=== PATIENT | male | born 1980 | race African-American/Black ===

== ENCOUNTER 2019-10-15 09:05 | Emergency (ER) | payer MEDICAID ==
[~2019-10-15] VITALS: Ht 185.4 cm; Wt 108.7 kg
[2019-10-15] MEDS ORDERED: MAALOX/HYOSCYAMINE/LIDOCAINE 45 ML BTL ONE (09:58)
[2019-10-15] MEDS ORDERED: MAALOX/HYOSCYAMINE/LIDOCAINE 45 ML BTL PO ONE (10:00)
[2019-10-15 10:06] LABS: MEAN CORPUSCULAR HGB CONC 33.6 g/dL (33.2-36.2); MEAN PLATELET VOLUME 7.8 fL (7.4-10.4); PLATELET COUNT 271 x10^3/uL (130-400); RED BLOOD COUNT 5.18 x10^6/uL (4.38-5.82); RED CELL DISTRIBUTION WIDTH 14.1 % (9.4-14.8)
[2019-10-15 10:11] LABS: INTERNATIONAL NORMALIZED RATIO 0.93 (0.93-1.1); PROTHROMBIN TIME 9.9 Seconds (9.6-11.5)
[2019-10-15 10:15] LABS: ALANINE AMINOTRANSFERASE 31 U/L (12-78); ALBUMIN 3.7 g/dL (3.4-5.0); ANION GAP 5 mmol/L (5-15); CALCIUM 9.1 mg/dL (8.5-10.1); CHLORIDE 112 mmol/L (98-107); CREATININE 1.32 mg/dL (0.7-1.3)
[2019-10-15 10:17] LABS: ALKALINE PHOSPHATASE 50 U/L (45-117); BILIRUBIN,TOTAL 0.4 mg/dL (0.2-1.0); TOTAL PROTEIN 7.6 g/dL (6.4-8.2)
--- NOTE | 2019-10-15 10:19 | NUR ---
pt has co abodminal pain w n/v/d for 1 week. denies cp, sob, cough.
[2019-10-15 10:34] LABS: BASOPHILS # (AUTO) 0.01 x10^3/uL (0-0.1); BASOPHILS % (AUTO) 0 % (0-1); EOSINOPHILS # (AUTO) 0.02 x10^3/uL (0-0.4); EOSINOPHILS % (AUTO) 1 % (1-7); LYMPHOCYTES # (AUTO) 0.71 x10^3/uL (1-3.4); LYMPHOCYTES % (AUTO) 21 % (22-44); MD SCAN; MONOCYTES # (AUTO) 0.21 x10^3/uL (0.2-0.8); MONOCYTES % (AUTO) 6 % (2-9); NEUTROPHILS # (AUTO) 2.48 x10^3/uL (1.8-6.8); NEUTROPHILS % (AUTO) 72 % (42-75)
[2019-10-15] MEDS ORDERED: MORPHINE SULFATE 4 MG/ML, 1ML ONE (10:41)
[2019-10-15] MEDS ORDERED: ONDANSETRON 2MG/ML, 2ML ONE (10:41)
[2019-10-15] MEDS ORDERED: ONDANSETRON 2MG/ML, 2ML IVPush ONE (11:00)
[2019-10-15] MEDS ORDERED: MORPHINE SULFATE 4 MG/ML, 1ML IVPush PRN (11:00)
[2019-10-15] MEDS ORDERED: SODIUM CHLORIDE FLUSH 10ML SYR IVF ONE (11:00)
--- NOTE | 2019-10-15 11:17 | NUR ---
pt medicated for pian. co 11/02 in abdomen. vss
[2019-10-15 11:24] LABS: MICROSCOPIC AUTO
[2019-10-15] MEDS ORDERED: OMNIPAQUE 350 MG/ML, 100ML BOTTLE ONE (12:18)
--- NOTE | 2019-10-15 12:30 | NUR ---
PT RESTING. BACK FROM IMAGING.
--- NOTE | 2019-10-15 13:09 | NUR ---
Patient/Caregiver given discharge instructions and they have confirmed that they understand the instructions. Patient ambulatory with steady gait.
[2019-10-15 13:11] VITALS: BP 152/95
== END 2019-10-15 13:22 | disposition home or self-care (01) ==
LOC: ED 10:34
DX: K29.00 Acute gastritis without bleeding (principal); R11.2 Nausea with vomiting, unspecified; R10.13 Epigastric pain; F17.200 Nicotine dependence, unspecified, uncomplicated
CPT/HCPCS: 36415; 74177; 76700; 80053; 81001; 83690; 85025; 85610; 96374; 96375; 99285; J2270; J2405; Q9967

== ENCOUNTER 2019-10-22 08:05 | Emergency (ER) | payer MEDICAID ==
[~2019-10-22] VITALS: Ht 182.9 cm; Wt 108.7 kg
--- NOTE | 2019-10-22 08:30 | NUR ---
PT WITH C/O ABD PAIN THAT BEGINS AT STERNUM AND GOES TO BELOW UMBILICUS. PT STATES HE WAS RECENTLY TO ER AND RELEASED FRIDAY WITH SAME SYMPTOMS, PT STATES HE WAS PRESCRIBED ANTACIDS AND SENT HOME, PT HAS BEEN COMPLIANT WITH MEDICATIONS ALTHOUGH PAIN HAS NOT RESOLVED AND PAIN WORSENED TODAY WHILE AT WORK. PT DENIES CP, SOB, COUGH.
[2019-10-22] MEDS ORDERED: ACETAMINOPHEN 500 MG TABLET PO ONE (09:00)
[2019-10-22] MEDS ORDERED: PROCHLORPERAZINE 10MG TABLET PO ONE (09:00)
[2019-10-22] MEDS ORDERED: ACETAMINOPHEN 500 MG TABLET ONE (09:09)
[2019-10-22] MEDS ORDERED: PROCHLORPERAZINE 10MG TABLET ONE (09:09)
[2019-10-22 09:35] LABS: BASOPHILS # (AUTO) 0.02 x10^3/uL (0-0.1); BASOPHILS % (AUTO) 1 % (0-1); EOSINOPHILS # (AUTO) 0.04 x10^3/uL (0-0.4); EOSINOPHILS % (AUTO) 1 % (1-7); LYMPHOCYTES # (AUTO) 1.05 x10^3/uL (1-3.4); LYMPHOCYTES % (AUTO) 26 % (22-44); MD NO; MEAN CORPUSCULAR HGB CONC 33.3 g/dL (33.2-36.2); MEAN CORPUSCULAR VOLUME 87.1 fL (81-97); MEAN PLATELET VOLUME 7.9 fL (7.4-10.4); MONOCYTES # (AUTO) 0.29 x10^3/uL (0.2-0.8); MONOCYTES % (AUTO) 7 % (2-9); NEUTROPHILS # (AUTO) 2.62 x10^3/uL (1.8-6.8); NEUTROPHILS % (AUTO) 65 % (42-75); PLATELET COUNT 272 x10^3/uL (130-400); RED BLOOD COUNT 5.27 x10^6/uL (4.38-5.82); RED CELL DISTRIBUTION WIDTH 14.2 % (9.4-14.8)
--- NOTE | 2019-10-22 09:41 | NUR ---
PT MEDICATED PER MAR, VSS AT THIS TIME, PT DENIES NEEDS
[2019-10-22 09:47] LABS: ALANINE AMINOTRANSFERASE 32 U/L (12-78); ALBUMIN 3.9 g/dL (3.4-5.0); ANION GAP 8 mmol/L (5-15); CALCIUM 9.1 mg/dL (8.5-10.1); CHLORIDE 111 mmol/L (98-107); CREATININE 1.38 mg/dL (0.7-1.3)
[2019-10-22 09:49] LABS: ALKALINE PHOSPHATASE 52 U/L (45-117); BILIRUBIN,TOTAL 0.5 mg/dL (0.2-1.0); TOTAL PROTEIN 7.9 g/dL (6.4-8.2)
[2019-10-22 10:23] VITALS: BP 155/104
== END 2019-10-22 12:04 | disposition home or self-care (01) ==
LOC: ED 09:14
DX: G89.29 Other chronic pain (principal); R10.13 Epigastric pain; R11.2 Nausea with vomiting, unspecified; R94.31 Abnormal electrocardiogram [ECG] [EKG]
CPT/HCPCS: 36415; 80053; 83690; 85025; 93005; 99284; Q0164

== ENCOUNTER 2019-12-29 17:32 | Emergency (ER) | payer MEDICAID ==
[~2019-12-29] VITALS: Ht 182.9 cm; Wt 104.6 kg
[2019-12-29 17:39] VITALS: BP 195/127
[2019-12-29] MEDS ORDERED: HYDROcodone/APAP 5/325 TABLET ONE (20:10)
[2019-12-29] MEDS ORDERED: IBUPROFEN 600 MG TABLET ONE (20:10)
[2019-12-29] MEDS ORDERED: HYDROcodone/APAP 5/325 TABLET PO ONE (20:30)
[2019-12-29] MEDS ORDERED: IBUPROFEN 200 MG TABLET PO ONE (20:30)
== END 2019-12-29 20:35 | disposition home or self-care (01) ==
LOC: ED 20:29
DX: S83.004A Unspecified dislocation of right patella, initial encounter (principal); E11.9 Type 2 diabetes mellitus without complications; R94.31 Abnormal electrocardiogram [ECG] [EKG]; X58.XXXA Exposure to other specified factors, initial encounter; Y93.89 Activity, other specified; Y92.89 Other specified places as the place of occurrence of the external cause; Y99.8 Other external cause status
CPT/HCPCS: 93005; 99283